=== PATIENT | male | born 1955 | race Two or more races ===

== ENCOUNTER 2021-12-03 23:00 | Emergency (ER) | payer SELFPAY ==
[~2021-12-03] VITALS: Ht 182.9 cm; Wt 100.0 kg
[2021-12-03 23:08] VITALS: BP 94/52
== END 2021-12-04 01:44 | disposition left against medical advice (07) ==
LOC: ER 23:00 → EDBD 23:00 → ER 12-04 01:44
DX: F10.129 Alcohol abuse with intoxication, unspecified (principal); Y90.9 Presence of alcohol in blood, level not specified; I11.0 Hypertensive heart disease with heart failure; I50.9 Heart failure, unspecified
CPT/HCPCS: 93005